=== PATIENT | female | born 1960 | race Caucasian/White ===

== ENCOUNTER 2019-03-18 11:43 | Outpatient (CLI) | payer OTHER | END 2019-03-18 23:59 | disposition home or self-care (01) | LOC: CFH 11:43 | PROVIDERS: ATTEND Surgery | DX: C50.412 Malignant neoplasm of upper-outer quadrant of left female breast (principal); D48.62 Neoplasm of uncertain behavior of left breast | CPT/HCPCS: A9585; C8908; C8937 ==

== ENCOUNTER 2019-03-22 13:15 | Outpatient (CLI) | payer OTHER | END 2019-03-22 23:59 | disposition home or self-care (01) | LOC: CFH 13:15 | PROVIDERS: ATTEND Surgery | DX: D24.2 Benign neoplasm of left breast (principal) | CPT/HCPCS: 19083; 19084; 76642; 77065; 88305; J3490 ==

== ENCOUNTER 2019-07-30 07:32 | Outpatient (CLI) | payer OTHER ==
[~2019-07-30 07:32] MED LIST: ACET-76 PO; FLUT9.9S NS; IBUP-1221 PO; LOSA25TA25 PO; MONT10TA6 PO
== END 2019-07-30 23:59 | disposition home or self-care (01) ==
LOC: ROC 07:32
PROVIDERS: ATTEND Radiology Radiation Oncology
DX: C50.412 Malignant neoplasm of upper-outer quadrant of left female breast (principal)
CPT/HCPCS: 99213; G0463

== ENCOUNTER → 2019-09-27 | Outpatient (CLI) | payer OTHER | END | disposition home or self-care (01) | LOC: CFH 09:26 | PROVIDERS: ATTEND Radiology Radiation Oncology | DX: C50.412 Malignant neoplasm of upper-outer quadrant of left female breast (principal) | CPT/HCPCS: 77065; G0279 ==

== ENCOUNTER → 2020-02-14 | Outpatient (CLI) | payer OTHER | END | disposition home or self-care (01) | LOC: CFH 13:31 | PROVIDERS: ATTEND Radiology Radiation Oncology | DX: Z08 Encounter for follow-up examination after completed treatment for malignant neoplasm (principal); I10 Essential (primary) hypertension; Z85.3 Personal history of malignant neoplasm of breast | CPT/HCPCS: 77066; G0279 ==

== ENCOUNTER 2020-05-17 07:20 | Outpatient (CLI) | payer OTHER | END 2020-05-17 23:59 | disposition home or self-care (01) | LOC: ROC 07:20 | PROVIDERS: ATTEND Radiology Radiation Oncology | DX: Z08 Encounter for follow-up examination after completed treatment for malignant neoplasm (principal); I10 Essential (primary) hypertension; Z85.3 Personal history of malignant neoplasm of breast | CPT/HCPCS: 99212; G0463 ==